=== PATIENT | male | born 1990 | race Caucasian/White ===

== ENCOUNTER 2018-08-16 08:22 | Emergency (ER) | payer SELFPAY ==
[2018-08-16 08:27] VITALS: BP 157/81; PULSE 76; RESP 18; TEMP 36.7; O2SAT 98
--- NOTE | 2018-08-16 08:37 | DI.RAD_ITS ---
SYMPTOM/DIAGNOSIS: SLIPPED, TWISTED ANKLE, PAIN', FELL AT WORK RIGHT ANKLE: Three views were obtained. The ankle mortise is well maintained. No fracture identified.
--- NOTE | 2018-08-16 08:39 | W.ED.GENAD ---
Discharge Plan Disposition Patient Disposition: HOME Condition: Good Discharge Details Chief Complaint: Orthopedic Clinical Impression: Ankle sprain Primary Care Provider: Bob Garcia ED Provider: Jaime Robison Discharge Instructions Stand Alone Forms: Work Release Referrals: Bob Garcia [Primary Care Provider] - Return if symptoms worsen Medical Decision Making History and exam consistent with sprain of ankle. Will x-ray being he is unable to bare weight. Will medicate with ibuprofen for pain. X-ray negative for fracture. Nurse fitted for ankle lace up splint. Pt apprised. Advised to use RICE therapy for the pain. Will give a few days off work note to allow for conservative treatment. Continue to use Ibuprofen for the pain. Return to ED for any other emergent concerns otherwise with pcp. Imaging Data Radiologic Study: Attestation: I personally reviewed and interpreted this imaging study as follows: Imaging: X-Ray My impression: Negative for fracture Radiologist's impression: v-rad: No acute findings. HPI General Mode of arrival: wheelchair. Date/Time Provider Initiated Documentation: 08/16/18 08:35. Limitations to Documentation: no limitations. Information obtained by: patient. History of Present Illness 28 year old M presents to the emergency department with the chief complaint of ankle pain, HPI Narrative: 28 y/o male here with c/o right ankle pain. 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 He slipped on a patch of ice and twisted right ankle. Pain worse on the inside of the ankle. Denies any other injury. Related Data Allergies Allergy/AdvReac Type Severity Reaction Status Date / Time pineapple Allergy Anaphylaxsi Unverified 08/29/17 06:20 s shellfish derived Allergy pt unsure Unverified 08/29/17 06:20 acetaminophen [From Vicodin] AdvReac Unverified 08/16/18 08:30 hydrocodone [From Vicodin] AdvReac Unverified 08/16/18 08:30 metal Allergy blisters Uncoded 08/29/17 06:20 if any metal comes in contact w/body General Stated Complaint: Orthopedic PHILIP: 4 Review of Systems Musculoskeletal Reports radiating pain into limb (right ankle) Neurologic Reports system reviewed and no additional complaints, except as docu PFSH Social History Smoking/Tobacco Use Status: Never Exam Const General: cooperative, healthy appearing, comfortable and no acute distress Orientation: alert, awake and oriented x3 Extrem Right lower extremity: normal to inspection, full ROM, normal capillary refill, knee Details: normal ROM; no tenderness and no swelling, lower leg Details: normal to inspection and tenderness Location: of the distal tibia and of the distal fibula, ankle Details: normal to inspection and tenderness (medial > lateral) Location: of the lateral malleolus and of the medial malleolus and foot Details: normal capillary refill, normal to inspection, toes with normal ROM, vascular exam Details: dorsalis pedis pulse present and motor-sensory exam Details: light-touch normal; no tenderness Course Vital Signs Temperature 36.7 C 08/16/18 08:27 Pulse 76 08/16/18 08:27 Respiratory Rate 18 08/16/18 08:27 Blood Pressure 157/81 H 08/16/18 08:27 Pulse Oximetry 98 08/16/18 08:27 Temperature 36.7 C 08/16/18 08:27 Temperature Source Temporal Artery Scan 08/16/18 08:27 Pulse 76 08/16/18 08:27 Respiratory Rate 18 08/16/18 08:27 Respiratory Effort 08/16/18 08:31 Blood Pressure 157/81 H 08/16/18 08:27 Pulse Oximetry 98 08/16/18 08:27 Oxygen Delivery Method Room Air 08/16/18 08:27 Oxygen Flow Rate 0 08/16/18 08:27 Pain Level 8 08/16/18 08:27
--- NOTE | 2018-08-16 08:45 | ED.GENADUL_ITS ---
Discharge Plan Disposition Patient Disposition: HOME Condition: Good Discharge Details Chief Complaint: Orthopedic Clinical Impression: Ankle sprain Primary Care Provider: Bob Garcia ED Provider: Jaime Robison Discharge Instructions Stand Alone Forms: Work Release Referrals: Bob Garcia [Primary Care Provider] - Return if symptoms worsen Medical Decision Making History and exam consistent with sprain of ankle. Will x-ray being he is unable to bare weight. Will medicate with ibuprofen for pain. X-ray negative for fracture. Nurse fitted for ankle lace up splint. Pt apprised. Advised to use RICE therapy for the pain. Will give a few days off work note to allow for conservative treatment. Continue to use Ibuprofen for the pain. Return to ED for any other emergent concerns otherwise with pcp. Imaging Data Radiologic Study: Attestation: I personally reviewed and interpreted this imaging study as follows: Imaging: X-Ray My impression: Negative for fracture Radiologist's impression: v-rad: No acute findings. HPI General Mode of arrival: wheelchair . Date/Time Provider Initiated Documentation: 08/16/18 08:35 . Limitations to Documentation: no limitations . Information obtained by: patient . History of Present Illness 28 year old M presents to the emergency department with the chief complaint of ankle pain, HPI Narrative: 28 y/o male here with c/o right ankle pain. 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 He slipped on a patch of ice and twisted right ankle. Pain worse on the inside of the ankle. Denies any other injury. Related Data Allergies Allergy/AdvReac Type Severity Reaction Status Date / Time pineapple Allergy Anaphylaxsi Unverified 08/29/17 06:20 s shellfish derived Allergy pt unsure Unverified 08/29/17 06:20 acetaminophen [From Vicodin] AdvReac Unverified 08/16/18 08:30 hydrocodone [From Vicodin] AdvReac Unverified 08/16/18 08:30 metal Allergy blisters Uncoded 08/29/17 06:20 if any metal comes in contact w/body General Stated Complaint: Orthopedic PHILIP: 4 Review of Systems Musculoskeletal Reports radiating pain into limb (right ankle) Neurologic Reports system reviewed and no additional complaints, except as docu PFSH Social History Smoking/Tobacco Use Status: Never Exam Const General: cooperative, healthy appearing, comfortable and no acute distress Orientation: alert, awake and oriented x3 Extrem Right lower extremity: normal to inspection, full ROM, normal capillary refill, knee Details: normal ROM; no tenderness and no swelling, lower leg Details: normal to inspection and tenderness Location: of the distal tibia and of the distal fibula, ankle Details: normal to inspection and tenderness (medial > lateral) Location: of the lateral malleolus and of the medial malleolus and foot Details: normal capillary refill, normal to inspection, toes with normal ROM, vascular exam Details: dorsalis pedis pulse present and motor-sensory exam Details: light-touch normal; no tenderness Course Vital Signs Temperature 36.7 C 08/16/18 08:27 Pulse 76 08/16/18 08:27 Respiratory Rate 18 08/16/18 08:27 Blood Pressure 157/81 H 08/16/18 08:27 Pulse Oximetry 98 08/16/18 08:27 Temperature 36.7 C 08/16/18 08:27 Temperature Source Temporal Artery Scan 08/16/18 08:27 Pulse 76 08/16/18 08:27 Respiratory Rate 18 08/16/18 08:27 Respiratory Effort 08/16/18 08:31 Blood Pressure 157/81 H 08/16/18 08:27 Pulse Oximetry 98 08/16/18 08:27 Oxygen Delivery Method Room Air 08/16/18 08:27 Oxygen Flow Rate 0 08/16/18 08:27 Pain Level 8 08/16/18 08:27
[2018-08-16] MEDS: Ibuprofen 800 MG TAB PO (08:58)
--- NOTE | 2018-08-16 10:02 | DI.VRAD_ITS ---
EXAM: XR Right Ankle Complete, 3 or more Views EXAM DATE/TIME: 08/16/2018 8:52 AM CLINICAL HISTORY: 28 years old, male; Pain; Ankle; Right; Patient HX: Patient sts fell and twisted ankle at work this morning. Lateral malleolus pain. TECHNIQUE: XR Right ankle 3 or more views. COMPARISON: No relevant prior studies available. FINDINGS: Bones/joints: Normal. There is no evidence of acute fracture.There is no evidence of malalignment or dislocation. Soft tissues: Normal. IMPRESSION: No acute findings. Dictated and Authenticated by: Melina Redman MD. Ordering:DAVID Sandoval MD
== END 2018-08-16 10:02 | disposition home or self-care (01) ==
PROVIDERS: Emergency Provider Nurse Practitioner Family; PCP Specialist/Technologist Athletic Trainer
DX: S93.401A Sprain of unspecified ligament of right ankle, initial encounter (principal); W00.0XXA Fall on same level due to ice and snow, initial encounter; X50.9XXA Other and unspecified overexertion or strenuous movements or postures, initial encounter; Y99.0 Civilian activity done for income or pay
CPT/HCPCS: 29515; 99283; 73610; L1902

== ENCOUNTER 2021-06-26 19:59 | Outpatient (REF) | payer OTHER, SELFPAY ==
[2021-06-29 08:17] LABS: Chlamydia Result Negative (Negative); GC Result Negative (Negative)
== END 2021-06-26 20:00 | disposition home or self-care (01) ==
LOC: NCHCN 19:59
PROVIDERS: PCP Specialist/Technologist Athletic Trainer; Visit Provider Nurse Practitioner Family
DX: Z11.3 Encounter for screening for infections with a predominantly sexual mode of transmission (principal)
CPT/HCPCS: 87491; 87591

== ENCOUNTER 2024-03-01 19:37 | Emergency (ER) | payer OTHER, SELFPAY ==
[2024-03-01 19:40] VITALS: BP 181/106; PULSE 105; RESP 18; TEMP 36.3; O2SAT 97
--- NOTE | 2024-03-01 20:00 | DI.CT_ITS ---
Exam(s) CT HEAD WO EXAM: CT HEAD WO CLINICAL HISTORY: head injury. TECHNIQUE: Imaging Protocol: Axial computed tomography images with coronal and sagittal reformatted images were created and reviewed COMPARISON: No exams were available for comparison FINDINGS: Ventricles and Extra axial spaces: Normal in size and morphology for the patient's age. Hemorrhage: None. Cerebral parenchyma: No evidence of acute infarct or mass. Midline shift: None. Brainstem/Cerebellum: Normal. Calvarium: Normal. Visualized Paranasal sinuses:Clear. Mastoids: Clear. Soft Tissues: Unremarkable. ORBITS: Unremarkable. PITUITARY: Not enlarged. IMPRESSION: No acute intracranial process. RADIATION DOSE DELIVERED: 792.4mGy.cm Total DLP DATA REPOSITORY: All CT scans at this facility are submitted to the National Radiology Data Registry (NRDR) Dose Index Registry (DIR) with the [employer] (A[employer]). RADIATION OPTIMIZATION: All CT scans at this facility use at least one of these dose optimization te chniques: automated exposure control; mA and/or kV adjustment per patient size (includes targeted exa ms where dose is matched to clinical indication); or iterative reconstruction.
[2024-03-01] MEDS: Acetaminophen 500 MG TAB 1000 MG PO (20:08)
--- NOTE | 2024-03-01 20:36 | DI.RAD_ITS ---
Exam(s) XR FOOT LT COMPLETE EXAM: XR FOOT LT COMPLETE CLINICAL HISTORY: foot pain. TECHNIQUE: 2D digital imaging was performed. Three views. COMPARISON: No exams were available for comparison FINDINGS: BONES: No acute fracture is present. No bony destructive lesion is seen. JOINTS: No dislocation present. SOFT TISSUE: Normal. IMPRESSION: Unremarkable radiographs of the left foot. DATA REPOSITORY: RADIATION DOSE DELIVERED:
--- NOTE | 2024-03-01 21:08 | DI.VRAD_ITS ---
PROCEDURE INFORMATION: Exam: CT Head Without Contrast Exam date and time: 03/01/2024 8:30 PM Age: 33 years old Clinical indication: Injury or trauma; Blunt trauma (contusions or hematomas); Consciousness not specified; Injury date: 03/01/24; Injury details: Hit with baseball on left side TECHNIQUE: Imaging protocol: Computed tomography of the head without contrast. Radiation optimization: All CT scans at this facility use at least one of these dose optimization techniques: automated exposure control; mA and/or kV adjustment per patient size (includes targeted exams where dose is matched to clinical indication); or iterative reconstruction. COMPARISON: No relevant prior studies available. FINDINGS: Brain: Normal volume for age. No acute intracranial hemorrhage. No evidence of acute large vascular territory infarct. No edema. No midline shift or herniation. Cerebral ventricles: No ventriculomegaly. Paranasal sinuses: Imaged paranasal sinuses appropriately aerated without air-fluid levels. Mastoid air cells: No mastoid effusion. Bones: No displaced or depressed skull fracture. Soft tissues: No focal soft tissue abnormality. IMPRESSION: No acute intracranial finding. Dictated and Authenticated by: Efraín Lester MD. Ordering:[facility] Aston Oneill MD
--- NOTE | 2024-03-01 21:08 | DI.VRAD_ITS ---
PROCEDURE INFORMATION: Exam: XR Left Foot Exam date and time: 03/01/2024 8:33 PM Age: 33 years old Clinical indication: Injury or trauma; Other: Sports injury; Other: Foot pain TECHNIQUE: Imaging protocol: Radiologic exam of the left foot. Views: 3 or more views. COMPARISON: No relevant prior studies available. FINDINGS: Bones/joints: No suspicious osseous lytic or blastic lesion. No acute fracture or dislocation. Soft tissues: No focal abnormality. IMPRESSION: No acute fracture or dislocation. Dictated and Authenticated by: Efraín Lester MD. [facility] Aston Oneill MD
[2024-03-01 21:19] VITALS: BP 160/110; PULSE 78; RESP 20; O2SAT 97
--- NOTE | 2024-03-01 21:43 | ED.GENADUL_ITS ---
Discharge Plan Disposition Patient Disposition: Home Condition: Stable Discharge Details Clinical Impression: Closed head injury, Foot sprain, Elevated blood pressure reading Primary Care Provider: Veronica Bill ED Provider: Kady Clancy Home Meds and New Rx's Prescriptions: No Action ibuprofen 200 mg tablet 200 mg PO Q6H PRN Discharge Instructions Instructions: Foot Sprain ED, Minor Head Injury, Adult ED Additional Instructions: * Motrin and Tylenol as needed for discomfort * brain rest with any persistent headache or fogginess. return with any concerns * Please follow up with PCP for blood pressure recheck HPI General Date/Time Provider Initiated Documentation: 03/01/24 20:03 . Limitations to Documentation: no limitations . Information obtained by: patient . HPI Narrative: 33-year-old gentleman without significant past medical history presents for evaluation of head injury and left foot pain. Reports just prior to arrival, the patient was playing softball and he was running to home plate when the third basement threw the softball and it accidentally hit him in the back of the head. He states that after he got hit in the back of the head there is a tussle with the catcher and a fall that resulted in him having left foot pain. He reports severe left foot pain, difficulty with weightbearing. No open wounds. No loss of consciousness, headache or vomiting. Related Data Home Medications Medication Instructions Recorded Confirmed ibuprofen 200 mg tablet 200 mg PO Q6H PRN 07/04/21 03/01/24 Allergies Allergy/AdvReac Type Severity Reaction Status Date / Time pineapple Allergy Anaphylaxsi Unverified 03/01/24 19:45 s shellfish derived Allergy pt unsure Unverified 03/01/24 19:45 acetaminophen [From Vicodin] AdvReac vomitting Unverified 03/01/24 19:45 hydrocodone [From Vicodin] AdvReac vomitting Unverified 03/01/24 19:45 metal Allergy blisters Uncoded 03/01/24 19:45 if any metal comes in contact w/body General Stated Complaint: Orthopedic PHILIP: 3 Exam Narrative Exam Narrative: Review of Systems: All systems reviewed & are unremarkable except as noted in HPI and below Well-developed, no acute distress NCAT no signs of contusion or swelling PERRL, normal conjunctiva no nystagmus RRR Unlabored respiratory effort clear bilaterally Nondistended abdomen Old abrasion on left knee and upper calf, there is no ankle tenderness, swelling or deformity, the left foot has some tenderness without deformity or bruising, n o tenderness over the head of the fifth metatarsal, neurovascularly intact No rashes or lesions. no focal neurologic deficits normal sensation and strength throughout Appropriate mood and affect Course Vital Signs Vital signs: Vital Signs Temperature 36.3 C L 03/01/24 19:40 Pulse 105 H 03/01/24 19:40 Respiratory Rate 18 03/01/24 19:40 Blood Pressure 181/106 H 03/01/24 19:40 Pulse Oximetry 97 03/01/24 19:40 Temperature 36.3 C L 03/01/24 19:40 Temperature Source Temporal Artery Scan 03/01/24 19:40 Pulse 78 03/01/24 21:19 Respiratory Rate 20 03/01/24 21:19 Respiratory Effort Normal, Non-Labored 03/01/24 19:43 Blood Pressure 160/110 H 03/01/24 21:19 Blood Pressure Position Sitting 03/01/24 19:40 Pulse Oximetry 97 03/01/24 21:19 Oxygen Delivery Method Room Air 03/01/24 19:40 Oxygen Flow Rate 0 03/01/24 19:40 Pain Level 4 03/01/24 21:19 Medical Decision Making Emergent evaluation of head injury and left foot injury. Patient has no neurologic deficits. He does not have any signs of a head injury on examination, but he was hit in the back of the head with a softball thrown at fairly significant speed based on his report. Given this, I will get CT imaging of his head to evaluate for fracture or bleeding. He does not have any ankle pain, but he does have left foot pain. There is no obvious deformity. X-ray obtained, there is no fracture. the patient brought crutches in with him. Recommend continued use of the crutches as he needs. Comfortable shoe. Ice pack elevation and Motrin and Tylenol. His head CT does not demonstrate any acute abnormality. Closed head injury precautions given to the patient. He was noted to have elevated blood pressure but is asymptomatic from this. Recommend that he follow-up with PCP this week to have his blood pressure rechecked and started on medications as needed if he is having persistent hypertension. Medical Records Medical records reviewed: Yes I reviewed the patient's medical records. Quality:[facility] Health Related Social Needs: No Data to Display PFSH All Active Problems Elevated blood pressure reading (Acute) Foot sprain (Acute) Closed head injury (Acute) Medical History Deviated nasal septum Pelvic pain Multiple lipomas Surgical History History of vasectomy Social History Smoking/Tobacco Use Status: Never Smoking risk assessment performed?: Yes Alcohol Intake: current Alcohol Intake frequency: a few times a week Alcohol type: beer Drug use: Never Substance use type: does not use Housing: house Do you feel safe at home: Yes Do you feel safe in your relationship?: Yes
== END 2024-03-01 21:28 | disposition home or self-care (01) ==
PROVIDERS: Emergency Provider Emergency Medicine; PCP Nurse Practitioner Family
DX: S93.602A Unspecified sprain of left foot, initial encounter (principal); S00.83XA Contusion of other part of head, initial encounter; R03.0 Elevated blood-pressure reading, without diagnosis of hypertension; W21.03XA Struck by baseball, initial encounter; W03.XXXA Other fall on same level due to collision with another person, initial encounter
CPT/HCPCS: 99284; 70450; 73630; 99283

== ENCOUNTER 2024-03-04 17:44 | Outpatient (REF) | payer OTHER, SELFPAY ==
[2024-03-04 20:05] LABS: Abs Immature Grans 0.01 10^3/uL (0.0-0.06); Absolute Basophil Count 0.06 10^3/uL (0.0-0.2); Absolute Eosinophil Count 0.14 10^3/uL (0.0-0.7); Absolute Monocyte Count 0.54 10^3/uL (0.1-0.8); Absolute Neutrophil Count 3.97 10^3/uL (1.2-6.7); Basophils % 0.9 %; Eosinophils % 2.1 %; HCT 46.8 % (40.0-50.0); HGB 15.6 g/dL (13.5-17.5); Immature Grans % 0.2 %; Lymphocytes % 28.7 %; MCH 29.4 pg (27.0-33.0); MCHC 33.3 % (32.0-36.0); MCV 88 fL (80-95); MPV 9.4 fL (8.0-11.0); Monocytes % 8.2 %; Neutrophils % 59.9 %; Platelet Count 294 10^3/uL (130-400); RDW 12.3 % (11.8-14.1); RDW-SD 40.1 fL; WBC 6.62 10^3/uL (4.4-10.8)
[2024-03-04 20:29] LABS: ALT 31 U/L (16-63); AST 18 U/L (15-37); Albumin 4.1 g/dL (3.4-5.0); Alkaline Phosphatase 77 U/L (46-116); Anion Gap 8.1 mmol/L (3-11); BUN 15 mg/dL (7-18); Bilirubin, Total 0.42 mg/dL (0.2-1.0); CO2 29.9 mmol/L (21.0-32.0); CREATININE 1.1 mg/dL (0.70-1.30); Calcium 9.1 mg/dL (8.5-10.1); Calculated LDL 121 mg/dL (<100); Chloride 105 mmol/L (98-107); Cholesterol 193 mg/dL (<200); Estimated GFR 90.34 (mL/min/1.73m2); Glucose 121 mg/dL (74-106); HDL Cholesterol 48 mg/dL (40-60); Potassium 3.9 mmol/L (3.5-5.1); Sodium 143 mmol/L (136-145); TSH (W/Ref FT4) 1.34 uIU/mL (0.36-3.74); Total Protein 7.8 g/dL (6.4-8.2); Triglyceride 121 mg/dL (<150)
== END 2024-03-04 17:45 | disposition home or self-care (01) ==
LOC: NCHCN 17:44
PROVIDERS: PCP Nurse Practitioner Family; Visit Provider Physician Assistant Medical
DX: R03.0 Elevated blood-pressure reading, without diagnosis of hypertension (principal)
CPT/HCPCS: 80053; 80061; 84443; 85025